=== PATIENT | female | born 1965 | race Caucasian/White ===

== ENCOUNTER 2020-04-05 04:23 | Emergency (ER) | payer MEDICAID ==
[~2020-04-05] VITALS: Ht 162.6 cm; Wt 107.5 kg
[2020-04-05 04:56] VITALS: BP 179/105; Ht 162.6 cm; Wt 107.5 kg
== END 2020-04-05 06:48 | disposition left against medical advice (07) ==
LOC: ED 04:23
DX: Z53.21 Procedure and treatment not carried out due to patient leaving prior to being seen by health care provider (principal)